=== PATIENT | female | born 1965 | race Caucasian/White ===

== ENCOUNTER 2019-03-31 13:07 | Emergency (ER) | payer SELFPAY ==
[2019-03-31 13:11] VITALS: BP 128/91; PULSE 101; RESP 16; TEMP 36.5; O2SAT 97
--- NOTE | 2019-03-31 13:27 | DI.RAD_ITS ---
SYMPTOMS/DIAGNOSIS: PAIN AND FRACTURE LEFT FOREARM: Two views. There are no priors. There is a fracture at the junction of the middle and distal thirds of the left radius. There is callus formation about the fracture suggesting a subacute fracture. There is deformity of the distal radius and the radial head suggesting old injury. No definite acute fracture is seen. There are old healed fracture deformities involving the 2nd and 5th metacarpals. The bones appear osteopenic. The soft tissues are unremarkable. IMPRESSION: Healing subacute fracture involving the distal left ulna. Old apparent fracture deformities involving the 2nd and 5th metacarpals, the distal radius and proximal radius. No definite acute fracture is appreciated at this time. Followup as clinically appropriate.
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
== END 2019-03-31 14:28 | disposition home or self-care (01) ==
PROVIDERS: Emergency Provider Emergency Medicine
DX: S51.812D Laceration without foreign body of left forearm, subsequent encounter (principal); S52.602D Unspecified fracture of lower end of left ulna, subsequent encounter for closed fracture with routine healing; X58.XXXD Exposure to other specified factors, subsequent encounter; Z48.02 Encounter for removal of sutures
CPT/HCPCS: 99283; 73090; 99282